=== PATIENT | male | born 1980 | race African-American/Black ===

== ENCOUNTER 2019-03-24 03:17 | Emergency (ER) | payer SELFPAY | END 2019-03-24 03:55 | disposition home or self-care (01) | LOC: MADERS 03:17 | DX: H92.01 Otalgia, right ear (principal); F41.9 Anxiety disorder, unspecified; F31.9 Bipolar disorder, unspecified; F20.9 Schizophrenia, unspecified | CPT/HCPCS: 99281 ==

== ENCOUNTER 2021-09-25 01:53 | Emergency (ER) | payer SELFPAY ==
[2021-09-25 02:56] LABS: #Basophils 0.1 thou/uL (0.0-0.2); #Eosinphils 0.1 thou/uL (0.0-0.7); #Lymphocytes 2.3 thou/uL (1.20-3.40); #Monocytes 1.1 thou/uL (0.11-0.59); #Neutrophils 4.5 thou/uL (1.40-6.50); %Eosinophils 1.1 % (0.0-10.0); %Lymphocytes 28.6 % (21.0-51.0); %Monocytes 13.2 % (0.0-10.0); %Neutrophils 56.1 % (42.0-75.0); Hemoglobin 14.5 g/dL (14.0-18.0); Mean Corpuscular HGB CONC 32.3 g/dL (32.0-36.0); Mean Corpuscular Hemoglobin 27.8 pg (27.0-31.0); Mean Corpuscular Volume 86.2 fL (78.0-98.0); Mean Platelet Volume 7.4 fL (7.4-10.4); Platelet Count 276 thou/uL (130-400); RBC Distribution Width 12.8 % (11.5-14.5); Red Blood Cell (RBC) Count 5.23 mill/uL (4.70-6.10)
[2021-09-25] MEDS ORDERED: Sterile Water 10 ML ONE (02:57)
[2021-09-25] MEDS ORDERED: Ziprasidone 20 MG VIAL ONE (02:57)
[2021-09-25 03:15] LABS: Acetaminophen Less than 6.0 mcg/mL (10.0-30.0); Alcohol Less than 10 mg/dL (Less than 10); Salicylate Less than 8.0 mg/dL (15.0-30.0)
[2021-09-25 03:17] LABS: ALT (SGPT) 25 U/L (8-55); AST (SGOT) 38 U/L (5-34); Albumin 4.1 g/dL (3.5-5.0); Alkaline Phosphatase 84 U/L (40-110); Anion Gap 13 mmol/L (10-20); BUN (Urea Nitrogen) 12 mg/dL (8.9-20.6); CK (CPK) 555 U/L (30-200); Calc. Creatinine Clearance 0 mL/min (70-130); Calcium 9.5 mg/dL (7.8-10.44); Carbon Dioxide 26 mmol/L (22-29); Chloride 102 mmol/L (98-107); Globulin 3.4 g/dL (2.4-3.5); Glucose 80 mg/dL (70-105); Potassium 3.5 mmol/L (3.5-5.1); Protein, Total 7.5 g/dL (6.0-8.3); Sodium 137 mmol/L (136-145)
== END 2021-09-25 03:16 | disposition left against medical advice (07) ==
LOC: MADERS 01:53
DX: R45.1 Restlessness and agitation (principal); Z79.82 Long term (current) use of aspirin
CPT/HCPCS: 80053; 80307; 82550; 85025; 96372; 99284; J3486

== ENCOUNTER 2021-11-07 14:35 | Emergency (ER) | payer SELFPAY ==
[2021-11-07 15:40] LABS: Bilirubin Small (Negative); Blood, Urine Trace (Negative); Clarity Clear (Clear); Glucose, Urine (Dipstick) Negative (Negative); Ketone, Urine 15 mg/dL (Negative); Leukocyte Negative (Negative); Nitrite Negative (Negative); Protein, Urine (Dipstick) 30 mg/dL (Neg-Trace); Urobilinogen 0.2 mg/dL (Less than 2)
[2021-11-07 15:42] LABS: Specific Gravity, Urine 1.032 (1.002-1.036)
[2021-11-07 15:47] LABS: Bacteria/HPF Rare-Few HPF (None Seen); Mucous/LPF 1+ LPF (<2+); RBC/HPF 0-3 HPF (0-3); Sperm/HPF 1+ HPF (None Seen); Squamous Epithelial 0-3 HPF (0-3)
[2021-11-07] MEDS ORDERED: Azithromycin 250 MG TAB ONE (16:16)
[2021-11-07] MEDS ORDERED: cefTRIAXone\\ROCEPHIN 1 GM VIAL ONE (16:16)
[2021-11-07] MEDS ORDERED: Lidocaine 1% (PF) 30 ML VIAL ONE (16:16)
[2021-11-08 11:05] LABS: Syphilis Antibody Nonreactive (Nonreactive); Syphilis Antibody Index 0.05 S/CO (<1.00 Non-Reactive)
[2021-11-08 14:40] LABS: Chlam.trachomatis by PCR,Urine Not Detected (NotDetected)
== END 2021-11-07 16:35 | disposition home or self-care (01) ==
LOC: MADERS 14:35
DX: N34.1 Nonspecific urethritis (principal); Z20.2 Contact with and (suspected) exposure to infections with a predominantly sexual mode of transmission
CPT/HCPCS: 36415; 81003; 81015; 86780; 87491; 87591; 96372; 99283; J0696; J2001

== ENCOUNTER 2023-07-14 11:07 | Emergency (ER) | payer SELFPAY ==
[2023-07-14] MEDS ORDERED: Doxycycline 100 MG CAP ONE (11:58)
[2023-07-14] MEDS ORDERED: cefTRIAXone (ROCEPHIN) 500 MG VIAL ONE (11:58)
[2023-07-14] MEDS ORDERED: Lidocaine 1% PF 5 ML VIAL ONE (11:58)
[2023-07-14 12:25] LABS: Bilirubin Small (Negative); Blood, Urine Negative (Negative); Clarity Clear (Clear); Glucose, Urine (Dipstick) 100 mg/dL (Negative); Ketone, Urine Negative (Negative); Leukocyte Negative (Negative); Nitrite Negative (Negative); Protein, Urine (Dipstick) 100 mg/dL (Neg-Trace)
[2023-07-14 12:26] LABS: CAUTI Indications for Culture Dysuria,urgency,freq; RBC/HPF 0-3 HPF (0-3); Specific Gravity, Urine 1.033 (1.002-1.036); WBC/HPF 0-3 HPF (0-3)
[2023-07-14 12:27] LABS: Bacteria/HPF Rare-Few HPF (None Seen); Squamous Epithelial 0-3 HPF (0-3); Urine Culture Reflex No No
[2023-07-14] MEDS ORDERED: Ondansetron ODT 4 MG TAB ONE (12:34)
== END 2023-07-14 13:03 | disposition home or self-care (01) ==
LOC: MADERS 11:07
DX: R39.15 Urgency of urination (principal)
CPT/HCPCS: 81001; 96372; 99283; J0696; Q0162

== ENCOUNTER 2024-01-30 20:16 | Emergency (ER) | payer OTHER ==
[2024-01-30] MEDS ORDERED: Ibuprofen 800 MG TAB ONE (20:45)
[2024-01-30] MEDS ORDERED: Acetaminophen 500 MG TAB ONE (20:46)
[2024-01-30] MEDS ORDERED: Lidocaine 4% Patch ONE (20:46)
== END 2024-01-30 21:25 | disposition home or self-care (01) ==
LOC: MADERS 20:16
DX: S13.4XXA Sprain of ligaments of cervical spine, initial encounter (principal); S20.212A Contusion of left front wall of thorax, initial encounter; V48.0XXA Car driver injured in noncollision transport accident in nontraffic accident, initial encounter
CPT/HCPCS: 94760

== ENCOUNTER 2024-02-02 13:08 | Emergency (ER) | payer OTHER | END 2024-02-02 15:10 | disposition home or self-care (01) | LOC: MADERS 13:08 | DX: S63.602A Unspecified sprain of left thumb, initial encounter (principal); F07.81 Postconcussional syndrome; V89.2XXA Person injured in unspecified motor-vehicle accident, traffic, initial encounter | CPT/HCPCS: 29125; 70450 ==

== ENCOUNTER 2024-02-16 08:03 | Emergency (ER) | payer OTHER ==
[2024-02-16 09:20] LABS: Influenza A by NAA Not Detected (NotDetected); Influenza B by NAA Not Detected (NotDetected); SARS-CoV-2 NAA Rapid Test Not Detected (NotDetected)
== END 2024-02-16 09:27 | disposition home or self-care (01) ==
LOC: MADERS 08:03
DX: J06.9 Acute upper respiratory infection, unspecified (principal); K05.00 Acute gingivitis, plaque induced; S63.602A Unspecified sprain of left thumb, initial encounter; X58.XXXA Exposure to other specified factors, initial encounter
CPT/HCPCS: 99283

== ENCOUNTER 2024-04-02 16:16 | Emergency (ER) | payer OTHER ==
[2024-04-02] MEDS ORDERED: Gabapentin 100 MG CAP ONE (17:25)
[2024-04-02] MEDS ORDERED: Cyclobenzaprine 10 MG TAB ONE (17:29)
== END 2024-04-02 17:50 | disposition home or self-care (01) ==
LOC: MADERS 16:16
DX: G56.91 Unspecified mononeuropathy of right upper limb (principal)

== ENCOUNTER 2024-04-12 09:10 | Emergency (ER) | payer OTHER ==
[2024-04-12] MEDS ORDERED: Orphenadrine Citrate 60 MG/2 ML VIAL ONE (10:14)
[2024-04-12] MEDS ORDERED: Ketorolac Tromethamine 30 MG (1 mL) VIAL ONE (10:14)
[2024-04-12] MEDS ORDERED: Azithromycin 250 MG TAB ONE (10:43)
[2024-04-12] MEDS ORDERED: cefTRIAXone (ROCEPHIN) 1 GM VIAL ONE (10:43)
[2024-04-12 10:50] LABS: Bilirubin Small (Negative); Blood, Urine Negative (Negative); Glucose, Urine (Dipstick) Negative (Negative); Ketone, Urine Trace mg/dL (Negative); Leukocyte Negative (Negative); Nitrite Negative (Negative); Protein, Urine (Dipstick) 30 mg/dL (Neg-Trace)
[2024-04-12 10:52] LABS: Specific Gravity, Urine 1.039 (1.002-1.036)
[2024-04-12 10:53] LABS: Clarity Hazy (Clear)
[2024-04-12 10:56] LABS: Bacteria/HPF Rare-Few HPF (None Seen); CAUTI Indications for Culture Pelvic or flank pain; Calcium Oxalate Crystals Rare HPF (None Seen); Mucous/LPF 2+ LPF (<2+); RBC/HPF None Seen HPF (0-3); Squamous Epithelial 0-3 HPF (0-3)
[2024-04-12 10:57] LABS: Urine Culture Reflex No No
[2024-04-12 23:24] LABS: Chlam.trachomatis by PCR,Urine Not Detected (NotDetected); GC N.gonorrhoeae PCR,UrineVOID Not Detected (NotDetected)
== END 2024-04-12 11:07 | disposition home or self-care (01) ==
LOC: MADERS 09:10
DX: G62.9 Polyneuropathy, unspecified (principal); M62.838 Other muscle spasm
CPT/HCPCS: 81001; 87491; 87591; 96372; 99283; J0696; J1885; J2360

== ENCOUNTER 2024-07-12 05:52 | Emergency (ER) | payer OTHER ==
[2024-07-12] MEDS ORDERED: Ondansetron ODT 4 MG TAB ONE (06:21)
[2024-07-12] MEDS ORDERED: Ketorolac Tromethamine 30 MG (1 mL) VIAL ONE (06:22)
[2024-07-12] MEDS ORDERED: Bicillin LA 1.2 MILLION UNITS/2 ML SYRINGE ONE (06:22)
== END 2024-07-12 07:32 | disposition home or self-care (01) ==
LOC: MADERS 05:52
DX: B34.9 Viral infection, unspecified (principal)
CPT/HCPCS: 96372; 99283; J0561; J1885; Q0162

== ENCOUNTER 2024-07-18 22:09 | Emergency (ER) | payer OTHER ==
[2024-07-18] MEDS ORDERED: Ibuprofen 200 MG TAB ONE (23:08)
== END 2024-07-18 23:12 | disposition home or self-care (01) ==
LOC: MADERS 22:09
DX: S01.511A Laceration without foreign body of lip, initial encounter (principal); V89.2XXA Person injured in unspecified motor-vehicle accident, traffic, initial encounter
CPT/HCPCS: 99283

== ENCOUNTER 2024-08-10 15:52 | Emergency (ER) | payer OTHER ==
[2024-08-10] MEDS ORDERED: Doxycycline 100 MG CAP ONE (16:46)
[2024-08-10] MEDS ORDERED: cefTRIAXone (ROCEPHIN) 500 MG VIAL ONE (16:46)
[2024-08-10] MEDS ORDERED: Sterile Water 10 ML ONE (16:46)
[2024-08-11 04:48] LABS: Chlam.trachomatis by PCR,Urine Not Detected (NotDetected); GC N.gonorrhoeae PCR,UrineVOID Not Detected (NotDetected)
== END 2024-08-10 17:13 | disposition home or self-care (01) ==
LOC: MADERS 15:52
DX: F41.9 Anxiety disorder, unspecified (principal); Z76.0 Encounter for issue of repeat prescription; Z55.6 Problems related to health literacy
CPT/HCPCS: 87491; 87591; 96372; 99283; J0696

== ENCOUNTER 2024-10-20 19:46 | Emergency (ER) | payer OTHER, SELFPAY ==
[2024-10-20] MEDS ORDERED: Ibuprofen 800 MG TAB ONE (20:26)
[2024-10-20] MEDS ORDERED: Acetaminophen 500 MG TAB ONE (20:26)
[2024-10-20 20:32] LABS: Amphetamine Detected (NotDetected); Barbiturates Screen Not Detected (NotDetected); Benzodiazepine Screen Not Detected (NotDetected); Cocaine Metabolite Screen Not Detected (NotDetected); Methadone Not Detected (NotDetected); Methamphetamine Detected (NotDetected); Opiate Screen Not Detected (NotDetected); Oxycodone Screen Not Detected (NotDetected); Phencyclidine (PCP) Not Detected (NotDetected); THC/Cannabinoid Screen Not Detected (NotDetected); Tricyclic Screen Not Detected (NotDetected)
[2024-10-20 20:33] LABS: Bilirubin Small (Negative); Blood, Urine Small (Negative); CAUTI Indications for Culture Dysuria,urgency,freq; Clarity Clear (Clear); Glucose, Urine (Dipstick) Negative (Negative); Ketone, Urine 15 mg/dL (Negative); Leukocyte Negative (Negative); Nitrite Negative (Negative); Protein, Urine (Dipstick) 100 mg/dL (Neg-Trace); RBC/HPF None Seen HPF (0-3); Specific Gravity, Urine 1.025 (1.002-1.036); Squamous Epithelial 0-3 HPF (0-3); Urobilinogen 0.2 mg/dL (Less than 2); WBC/HPF None Seen HPF (0-3); pH, Urine 5.5 (5.0-9.0)
[2024-10-20 20:34] LABS: Urine Culture Reflex No No
[2024-10-20 20:42] LABS: #Basophils 0.1 thou/uL (0.0-0.2); #Eosinophils 0.2 thou/uL (0.0-0.7); #Lymphocytes 1.6 thou/uL (1.20-3.40); #Monocytes 1.7 thou/uL (0.11-0.59); #Neutrophils 8.5 thou/uL (1.40-6.50); %Basophils 0.8 % (0.0-1.0); %Eosinophils 1.3 % (0.0-10.0); %Lymphocytes 13.4 % (21.0-51.0); %Monocytes 14.1 % (0.0-10.0); %Neutrophils 70.4 % (42.0-75.0); Hematocrit 46.5 % (42.0-52.0); Hemoglobin 14.3 g/dL (14.0-18.0); Mean Corpuscular HGB CONC 30.8 g/dL (32.0-36.0); Mean Corpuscular Hemoglobin 26.3 pg (27.0-31.0); Mean Corpuscular Volume 85.3 fl (78.0-98.0); Mean Platelet Volume 7.9 fL (7.4-10.4); Platelet Count 221 10x3/uL (130-400); Red Blood Cell (RBC) Count 5.46 mill/uL (4.70-6.10)
[2024-10-20 21:05] LABS: Acetaminophen Less than 10 mcg/mL (Less than 10); Alcohol Less than 10.0 mg/dL (Less than 10); Salicylate Less than 8.0 mg/dL (Less than 8.0)
[2024-10-20 21:07] LABS: ALT (SGPT) 53 U/L (Less than 45); AST (SGOT) 113 U/L (11-34); Albumin 4.6 g/dL (3.1-4.5); Alkaline Phosphatase 89 U/L (40-110); Anion Gap 13 mmol/L (10-20); BUN (Urea Nitrogen) 24 mg/dL (8.9-20.6); Bilirubin, Total 1.1 mg/dL (0.3-1.2); Calc. Creatinine Clearance 0 mL/min (70-130); Calcium 9.1 mg/dL (7.8-10.44); Carbon Dioxide 23 mmol/L (22-29); Chloride 107 mmol/L (98-107); Estimated GFR 86; Globulin 3.9 g/dL (2.4-3.5); Glucose 132 mg/dL (70-105); Potassium 4.1 mmol/L (3.5-5.1); Protein, Total 8.5 g/dL (6.0-8.3); Sodium 139 mmol/L (136-145)
[2024-10-21 12:09] LABS: HIV (1/2) Antibody/Antigen NONREACTIVE (NonReactive); HIV 1/2 INDEX 0.06 S/CO (<1.00)
[2024-10-21 13:54] LABS: Syphilis Antibody Nonreactive (Nonreactive); Syphilis Antibody Index 0.07 S/CO (<1.00 Non-Reactive)
== END 2024-10-20 22:10 | disposition home or self-care (01) ==
LOC: MADERS 19:46
DX: F15.129 Other stimulant abuse with intoxication, unspecified (principal); M79.10 Myalgia, unspecified site; R74.01 Elevation of levels of liver transaminase levels
CPT/HCPCS: 36415; 80053; 80306; 80307; 81001; 85025; 86780; 87389; 87428; 99284

== ENCOUNTER 2025-03-28 23:12 | Emergency (ER) | payer SELFPAY ==
[2025-03-29] MEDS ORDERED: Acetaminophen 500 MG TAB ONE (00:11)
[2025-03-29] MEDS ORDERED: Ibuprofen 600 MG TAB ONE (00:11)
[2025-03-29] MEDS ORDERED: Amoxicillin/Potassium Clav 875 MG TAB ONE (00:11)
== END 2025-03-29 00:19 | disposition home or self-care (01) ==
LOC: MADERS 23:12
DX: H66.91 Otitis media, unspecified, right ear (principal); F32.9 Major depressive disorder, single episode, unspecified; F17.210 Nicotine dependence, cigarettes, uncomplicated
CPT/HCPCS: 99282

== ENCOUNTER 2025-08-30 07:32 | Emergency (ER) | payer OTHER ==
[2025-08-30 07:54] LABS: Glucose, Urine (Dipstick) Negative (Negative); Leukocyte Negative (Negative); Protein, Urine (Dipstick) Negative (Neg-Trace); Specific Gravity, Urine Greater/Equal 1.030 (1.005-1.030)
[2025-08-30 08:01] LABS: Bacteria/HPF Rare-Few HPF (None Seen); CAUTI Indications for Culture Dysuria,urgency,freq; RBC/HPF 0-3 HPF (0-3); WBC/HPF 0-3 HPF (0-3)
[2025-08-30 08:02] LABS: Urine Culture Reflex No No
[2025-08-30 08:46] LABS: Cocaine Metabolite Screen Negative (Negative); THC/Cannabinoid Screen Negative (Negative); Tricyclic Screen Negative (Negative)
== END 2025-08-30 08:53 | disposition home or self-care (01) ==
LOC: MADERS 07:32
DX: S00.83XA Contusion of other part of head, initial encounter (principal); S80.01XA Contusion of right knee, initial encounter; F15.20 Other stimulant dependence, uncomplicated; R30.0 Dysuria; F17.210 Nicotine dependence, cigarettes, uncomplicated; V89.2XXA Person injured in unspecified motor-vehicle accident, traffic, initial encounter; W22.12XA Striking against or struck by front passenger side automobile airbag, initial encounter
CPT/HCPCS: 80306; 81001; 99284